=== PATIENT | female | born 1990 | race Hispanic/Latino ===

== ENCOUNTER 2020-08-11 09:19 | Emergency (ER) | payer OTHER, SELFPAY ==
--- NOTE | 2020-08-11 09:34 | ED.GENADULT ---
HPI - General Adult General Chief complaint: Upper Respiratory Infection Stated complaint: Sinus Infection/Ear Pain Time Seen by Provider: 08/11/20 09:38 Source: patient, family (spouse) and RN notes reviewed Mode of arrival: ambulatory Limitations: language barrier (patient speaks little Setswana and requested for spouse to translate for her, refused associate director regulatory affairs line) History of Present Illness HPI narrative: 29-year-old female presents with spouse (Suyapa requested he translate) complains of upper respiratory infection, some facial congestion, facial pressure, right otalgia, and intermittent headache (not the worst of her life) for the past 3 weeks. Suyapa and spouse reports 2 rounds of Z-pack (5 days each), 10 days of 875mg of Amoxicillin, Flonase, and Zyrtec with some relief. No facial swelling. Denies cough or chest congestion. Nasal congestion. No rhinorrhea. No sore throat. No high fevers, drooling, neck or throat swelling. No voice change. No nausea, vomiting, or abdominal pain. Tolerating liquids well. Denies dyspnea, difficulty swallowing, jaw pain, dental pain, foreign body sensation, facial swelling and rash. The patient and spouse reports they have not been diagnosed with COVID-19. The patient and spouse reports they are not waiting for the results of a COVID-19 lab test. The patient and spouse reports they do not have chills, weakness, fatigue, or myalgia. The patient and spouse reports they do not have a new or worsening cough or shortness of breath. Denies chest pain. The patient and spouse reports they do not have any loss of taste or diarrhea. Denies recent traveling. Denies concerns for COVID-19 or exposures been home with limited outdoor exposure except for essential household needs and return home. At this time, patient is not suspected of having COVID-19. Some parts of this dictation were generated by voice recognition software and may contain typographical and/or grammatical inaccuracies. Related Data Home Medications Medication Instructions Recorded Confirmed levothyroxine 08/11/20 Allergies Allergy/AdvReac Type Severity Reaction Status Date / Time No Known Allergies Allergy Verified 08/11/20 18:37 Review of Systems Review of Systems: Narrative: CONSTITUTIONAL: Denies fever, chills, sweats. EYES: Denies visual changes, redness, discharge. ENT: Denies rhinorrhea, sore throat. Complains of congestion, RT otalgia, facial congestion and pressure. CARDIOVASCULAR: Denies chest pain, palpitations, edema. RESPIRATORY: Denies dyspnea, wheezing, cough. GASTROINTESTINAL: Denies abdominal pain, nausea, vomiting, diarrhea. GENITOURINARY: Denies dysuria, hematuria, abnormal discharge. SKIN: Denies rash or itching. MUSCULOSKELETAL: Denies acute back pain, joint pain, or myalgia. NEUROLOGIC: Denies numbness or focal weakness. Complains of intermittent CHAVEZ. PSYCHIATRIC: Denies anxiety or depression. All systems reviewed & are unremarkable except as noted in HPI and below PMFSH Past Medical History Medical History delivery delivered Hypothyroidism Obesity Surgical History Surgical History (Updated 08/11/20 @ 10:57 by CARMEL Romo) H/O section X1 Family History Family History (Updated 08/11/20 @ 10:57 by CARMEL Romo) Father Hypercholesteremia Mother Hypercholesteremia Hypertension Diabetes mellitus Social History Social History Smoking status: Never smoker Tobacco type: cigarettes Second hand tobacco smoke exposure: No Alcohol intake: current Substance use: never Additional living arrangements comments: spouse and child Gender identity (if verbalized by the patient): Female Comments At time of signature, agree with nurse past medical, surgical, social, and family history. There is no relevant family history
[2020-08-11 09:41] VITALS: BP 121/65; PULSE 90; RESP 16; TEMP 36.1; O2SAT 100
[2020-08-11 09:45] VITALS: BP 121/65; PULSE 90; RESP 16; TEMP 36.1; O2SAT 100
== END 2020-08-11 11:15 | disposition home or self-care (01) ==
PROVIDERS: Emergency Provider Nurse Practitioner Family; PCP Physician Assistant
DX: J32.9 Chronic sinusitis, unspecified (principal); E03.9 Hypothyroidism, unspecified
CPT/HCPCS: 99213; G0463

== ENCOUNTER 2020-08-11 18:22 | Emergency (ER) | payer OTHER, SELFPAY ==
[2020-08-11] VITALS (32 sets, daily range): BP systolic 107–146; BP diastolic 64–88; PULSE 72–120; RESP 13–23; TEMP 37.2; O2SAT 94–100
--- NOTE | ~2020-08-11 | CT_ITS ---
EXAMINATION: CT abdomen pelvis w con DATE: 08/11/2020 21:23 INDICATION: Abdominal pain TECHNIQUE: Computed tomography (CT) of the abdomen and pelvis was performed with 100 cc Omnipaque 350 intravenous contrast. The dose-length product was 527.14 mGy-cm. Automated exposure control and iter ative reconstruction technique were employed. COMPARISON: None. FINDINGS: Lung bases are unremarkable. Heart size normal. No significant pleural or pericardial effus ion. No significant vascular abnormality. No lymphadenopathy. The liver, spleen, pancreas, adrenal glands and kidneys are unremarkable. Gallbladder is present. The re is mild bilateral hydronephrosis. No obstructing stone or mass is identified. There are fluid-fill ed small bowel loops in the left upper and midabdomen. No definite obstruction. Gallbladder is presen t. No free air or free fluid. No acute osseous abnormality. IMPRESSION: 1. Nonspecific fluid and gas filled segments of small bowel without definite obstruction, most likely ileus. Also consider enteritis. Reviewed, dictated and finalized at location A. EILLANCE SYSTEMS ANALYST IMPRESSION: 1. Nonspecific fluid and gas filled segments of small bowel without definite ob struction, most likely ileus. Also consider enteritis.
--- NOTE | ~2020-08-11 | XR_ITS ---
EXAMINATION: XR chest 1V portable EXAM DATE: 08/11/2020 22:51 INDICATION: Cough, right-sided upper abdominal flank pain, numbness down right leg. TECHNIQUE: Portable AP frontal chest x-ray was obtained. There is no prior study for comparison. FINDINGS: The lungs are clear. There are no pleural effusions. Cardiac silhouette is prominent but magnified on this AP technique. There is no pneumothorax suspected. The bones and soft tissues are unremarkable. IMPRESSION: No acute cardiopulmonary findings. Reviewed, dictated and finalized at location A. S PERSON
--- NOTE | 2020-08-11 18:43 | PC.NURSE ---
patient seen this morning at [facility] for flank pain, ear pain and sinus pressure. states she believes she is not getting any better
--- NOTE | 2020-08-11 19:22 | PC.NURSE ---
Used stratus to explain blood draw, need for and process for clean catch UA, which pain meds will be getting and will be getting IVF after inserting an IV. Pt. denied questions.
[2020-08-11] MEDS: SODIUM CHLORIDE 0.9% IV 1,000 ML 999 ML IV CONT (19:40)
[2020-08-11] MEDS: KETOROLAC 30 MG/ML VIAL (*BKC) IV PUSH (19:41)
[2020-08-11 19:55] LABS: Basophils Percent Auto 0.2 % (0.2-1.2); Eosinophils Percent Auto 0.1 % (0-4.4); Hematocrit 40.8 % (37.0-47.0); Hemoglobin 14.3 g/dL (12.0-15.0); Immature Granulocyte Absolute 0.04 K/mm3 (0.00-0.031); Immature Granulocyte Percent A 0.4 % (0-0.5); Lymphocytes Absolute Auto 1.66 K/mm3 (0.9-3.2); Mean Corpuscular Hemoglobin 31.7 pg (26-34); Mean Corpuscular Volume 90.5 fl (80-100); Mean Platelet Volume 9.8 fl (7.4-10.4); Monocytes Absolute Auto 0.4 K/mm3 (0.1-0.6); Monocytes Percent Auto 3.9 % (2.6-8.5); Neutrophils Absolute Auto 7.6 K/mm3 (1.3-6.7); Neutrophils Percent Auto 78.4 % (45.5-73.1); Platelet Count Result 298 k/mm3 (150-375); Red Blood Count 4.51 M/mm3 (4.2-5.4); White Blood Count 9.8 K/mm3 (4.5-10.0)
[2020-08-11 19:59] LABS: Add Urine Microscopic? YES; Appearance Urine Clear (Clear); Bacteria Urine Trace /hpf; Bilirubin Urine Negative (Negative); Blood Urine Negative (Negative); Color Urine Colorless (Yellow); Glucose Urine UA 1+ mg/dL (Negative); Ketones Urine Negative (Negative); Leukocyte Esterase Ur Negative LEU/UL (Negative); Mucus Urine Rare /lpf; Nitrate Urine Negative (Negative); Protein Urine Negative (Negative); RBC Urine 0-2 /hpf (0-2); Specific Grav Ur 1.008 (1.001-1.035); Squamous Epithelial Cell Urine Occasional /hpf (Few); Urobilinogen Urine Negative mg/dL (<2.0); WBC Urine 0-3 /hpf
[2020-08-11 20:14] LABS: Lipase 73 U/L (23-300)
[2020-08-11 20:17] LABS: Alanine Aminotransferase 25 U/L (4-35); Albumin Level 4.3 g/dL (3.5-5.1); Alkaline Phosphatase 93 U/L (38-126); Anion Gap 11 mmol/L (8-16); Aspartate Amino Transferase 26 U/L (14-36); Bilirubin,Total 0.2 mg/dL (0.2-1.3); Blood Urea Nitrogen 12 mg/dL (7-17); Calcium 9.9 mg/dL (8.4-10.2); Carbon Dioxide 24 mmol/L (22-30); Chloride 105 mmol/L (98-107); Estimated CRCL calculation 101 ml/min; Estimated Glomerular Filt Rate > 60; Glucose 165 mg/dL (65-105); Potassium 3.9 mmol/L (3.4-5.0); Sodium 140 mmol/L (137-145)
[2020-08-11] MEDS: ONDANSETRON INJ 4 MG/2 ML VIAL IV PUSH (20:52)
[2020-08-11] MEDS: MORPHINE SULFATE (*CRX) 4 MG/ML INJ IV PUSH (20:53)
--- NOTE | 2020-08-11 23:24 | ED.GENADULT ---
HPI - General Adult General Chief complaint: Abdominal Pain Stated complaint: right flank pain, numbness, high bp Time Seen by Provider: 08/11/20 19:00 Source: RN notes reviewed History of Present Illness HPI narrative: Patient presents to emergency department from home for multiple complaints. Patient states that over the past 1 month she has been having pain in her right flank rating around her right abdomen and down into her right buttocks with tingling intermittently in her right leg states the pain became worse this evening she denies any trauma or injury she also states that she has been having some sinus congestion and rhinorrhea with a mild nonproductive cough over the past several days the patient gone to urgent care this morning and been placed on steroids and antihistamines. She denies any fevers or chills she states she has been having nausea and vomiting as well as some mild loose stools she denies any fevers or chills chest pain shortness of breath or any other symptoms. She denies any bowel or bladder incontinence or weakness of the leg Related Data Home Medications Medication Instructions Recorded Confirmed levothyroxine 08/11/20 Allergies Allergy/AdvReac Type Severity Reaction Status Date / Time No Known Allergies Allergy Verified 08/11/20 18:37 Review of Systems Review of Systems: Narrative: Gen.: Denies fevers or chills Eyes: Denies eye pain or visual change ENT: Reports congestion Respiratory: Denies shortness of breath reports nonproductive cough CV: Denies chest pain or palpitations GI: Reports right-sided abdominal pain reports nausea vomiting diarrhea denies burning, urgency, frequency or hematuria Musculoskeletal: Reports right flank pain Neuro: Denies numbness, reports tingling intermittently right leg denies any weakness Skin: Denies rash Except as documented, all other systems reviewed and negative [facility] Past Medical History Medical History delivery delivered Hypothyroidism Obesity Surgical History Surgical History (Updated 08/11/20 @ 10:57 by CARMEL Romo) H/O section X1 Family History Family History (Updated 08/11/20 @ 10:57 by CARMEL Romo) Father Hypercholesteremia Mother Hypercholesteremia Hypertension Diabetes mellitus Social History Social History Smoking status: Never smoker Tobacco type: cigarettes Second hand tobacco smoke exposure: No Alcohol intake: current Substance use: never Additional living arrangements comments: spouse and child Gender identity (if verbalized by the patient): Female Exam Narrative: Exam Narrative: APPEARANCE: No acute distress, nontoxic, resting in bed EYES: EOMI HEENT: Normocephalic, atraumatic, TMs clear bilaterally bilateral turbinates boggy RESPIRATORY: No respiratory distress Clear to auscultation bilaterally with no rhonchi wheezing or rales. CARDIOVASCULAR: Regular rate and rhythm without murmurs rubs or gallops. ABDOMINAL: Soft, nondistended mild tenderness in right upper and lower quadrants no tenderness left upper quadrant and left lower quadrant no rebound or guarding no overlying erythema or rash MUSCULOSKELETAl: Moves all extremities. No clubbing, cyanosis or edema. Back: No midline thoracic or lumbar chest palpation palpation right paravertebral muscles L3-5 muscle strength 5 out of 5 in bilateral lower extremities bilateral patellar 2+ NEURO: Awake and alert x 4. Following commands, speech normal, no focal deficits SKIN:: Warm, dry. No rashes lesions or abrasions PSYCHIATRIC: Normal affect/mood, Course Course Emergency Course: Reviewed note from urgent care this morning Discussed with patient results of workup and diagnosis. Discussed need for follow-up with primary care, proper use of medication, and reasons to return to the emergency department.
[2020-08-12 19:30] LABS: SARS-CoV-2 RNA PCR Negative
== END 2020-08-11 23:54 | disposition home or self-care (01) ==
PROVIDERS: Emergency Provider Emergency Medicine; PCP Physician Assistant
DX: K52.9 Noninfective gastroenteritis and colitis, unspecified (principal); M54.5 Low back pain; Z20.828 Contact with and (suspected) exposure to other viral communicable diseases; E03.9 Hypothyroidism, unspecified; E66.9 Obesity, unspecified; Z68.30 Body mass index [BMI] 30.0-30.9, adult
CPT/HCPCS: 36415; 71045; 74177; 80053; 81001; 81025; 83690; 85025; 87635; 96361; 96374; 96375; 99284; C9803; J1885; J2270; J2405; J7030; Q9967; U0003

== ENCOUNTER 2020-08-23 13:45 | Outpatient (CLI) | payer OTHER, SELFPAY ==
--- NOTE | ~2020-08-23 | US_ITS ---
EXAMINATION: US thyroid DATE: 08/23/2020 14:03 INDICATION: Hypothyroidism. TECHNIQUE: Multiple ultrasound images of the thyroid were obtained. COMPARISON: None. FINDINGS: The right thyroid lobe measures 3.1 x 1.0 x 1.0 cm. The left thyroid lobe measures 2.8 x 0.9 x 0.9 c m. There is normal echotexture and echogenicity throughout the thyroid gland. No discrete nodules id entified. Normal vascular flow is present. IMPRESSION: 1. Normal thyroid. Reviewed, dictated and finalized at location A. IOLOGY PHYSICIAN ASSISTANT IMPRESSION: 1. Normal thyroid.
== END 2020-08-23 13:46 ==
PROVIDERS: PCP Physician Assistant; Visit Provider Physician Assistant
DX: E03.9 Hypothyroidism, unspecified (principal)
CPT/HCPCS: 76536

== ENCOUNTER 2020-09-09 00:31 | Emergency (ER) | payer OTHER, SELFPAY ==
[2020-09-09 00:45] VITALS: BP 130/81; PULSE 88; RESP 12; TEMP 37; O2SAT 100
[2020-09-09] MEDS: KETOROLAC 30 MG/ML VIAL (*BKC) IV PUSH (01:48)
[2020-09-09] MEDS: SODIUM CHLORIDE 0.9% IV 1,000 ML 999 ML IV CONT (01:49)
[2020-09-09 01:55] LABS: Anion Gap 4 mmol/L (8-16); Blood Urea Nitrogen 14 mg/dL (7-17); Calcium 9.2 mg/dL (8.4-10.2); Carbon Dioxide 28 mmol/L (22-30); Chloride 107 mmol/L (98-107); Estimated Glomerular Filt Rate > 60; Glucose 101 mg/dL (65-105); Magnesium 2.1 mg/dL (1.6-2.3); Potassium 3.8 mmol/L (3.4-5.0); Sodium 139 mmol/L (137-145)
--- NOTE | 2020-09-09 02:44 | ED.GENADULT ---
HPI - General Adult General Chief complaint: Allergic Reaction Stated complaint: think i might be having a rxn to an antibiotic. Time Seen by Provider: 09/09/20 00:55 History of Present Illness HPI narrative: Patient is a 29-year-old female who presents to the ER with concerns of headache and sinus issues. Patient reports chronic sinus infection that she is recently seen ENT for. She started Augmentin. Previously she had been on a Z-Kiet x2 as well as amoxicillin. Additionally she had finished 2 rounds of steroids. She reports that she takes Flonase daily as well as other oral sinus decongestants. Tonight she is having a throbbing/burning headache over the top of her head near the occiput. No change in vision or hearing. No nausea or vomiting. She reports she thought she might be having some swelling to her left neck near the mandibular angle. No redness. No inability to swallow. Related Data Home Medications Medication Instructions Recorded Confirmed levothyroxine 08/11/20 Allergies Allergy/AdvReac Type Severity Reaction Status Date / Time Iodine and Iodide Containing Allergy Unknown Verified 09/09/20 01:47 Produc Review of Systems Review of Systems: All systems reviewed & are unremarkable except as noted in HPI and below Constitutional: Constitutional: Denies chills, Denies fever(s) and Denies weakness ENT: Denies dysphagia, Reports nasal congestion and Denies sore throat Respiratory: Respiratory: Denies cough and Denies dyspnea Gastrointestinal: Gastrointestinal: Denies abdominal pain, Denies nausea and Denies vomiting Neurologic: Denies dizziness, Reports headache(s) and Denies numbness PMFSH Past Medical History Medical History delivery delivered Hypothyroidism Obesity Surgical History Surgical History (Updated 08/11/20 @ 10:57 by CARMEL Romo) H/O section X1 Family History Family History (Updated 08/11/20 @ 10:57 by CARMEL Romo) Father Hypercholesteremia Mother Hypercholesteremia Hypertension Diabetes mellitus Social History Social History Smoking status: Never smoker Tobacco type: cigarettes Second hand tobacco smoke exposure: No Alcohol intake: current Substance use: never Additional living arrangements comments: spouse and child Gender identity (if verbalized by the patient): Female Exam Narrative: Exam Narrative: GENERAL: Well-appearing, well-nourished, and in no acute distress. HEAD: Normocephalic, atraumatic. NECK: Supple. CHEST: Clear to auscultation. No respiratory distress. HEART: Regular rate and rhythm. Normal peripheral pulses. EXTREMITIES: Normal range of motion. No edema. NEURO: Alert and oriented x3. PSYCH: Normal mood and affect. Course Course Emergency Course: Unremarkable evaluation. Headache improved after fluids and Toradol. Discharge home. Vital Signs Vital signs: Vital Signs Temperature 98.6 F 09/09/20 00:45 Pulse Rate 88 09/09/20 00:45 Respiratory Rate 12 09/09/20 00:45 Blood Pressure 130/81 09/09/20 00:45 Pulse Oximetry 100 09/09/20 00:45 Temperature 98.6 F 09/09/20 00:45 Pulse Rate 88 09/09/20 00:45 Respiratory Rate 12 09/09/20 00:45 Blood Pressure 130/81 09/09/20 00:45 Pulse Oximetry 100 09/09/20 00:45 Medical Decision Making Vital Signs Vital Signs: Vital Signs Temperature 98.6 F 09/09/20 00:45 Pulse Rate 88 09/09/20 00:45 Respiratory Rate 12 09/09/20 00:45 Blood Pressure 130/81 09/09/20 00:45 Pulse Oximetry 100 09/09/20 00:45 Temperature 98.6 F 09/09/20 00:45 Pulse Rate 88 09/09/20 00:45 Respiratory Rate 12 09/09/20 00:45 Blood Pressure 130/81 09/09/20 00:45 Pulse Oximetry 100 09/09/20 00:45 Lab Data Result diagrams: 09/09/20 01:36 Labs: Lab Results
[2020-09-09 03:10] VITALS: BP 113/79; PULSE 75; RESP 16; O2SAT 99
== END 2020-09-09 03:10 | disposition home or self-care (01) ==
PROVIDERS: Emergency Provider Emergency Medicine; PCP Physician Assistant
DX: R51.9 Headache, unspecified (principal); E03.9 Hypothyroidism, unspecified; E66.9 Obesity, unspecified
CPT/HCPCS: 36415; 80048; 83735; 96361; 96374; 99284; J1885; J7030

== ENCOUNTER → 2020-09-26 06:51 | Outpatient (CLI) | payer OTHER, SELFPAY ==
[2020-09-26 22:50] LABS: SARS-CoV-2 RNA PCR Negative
== END ==
PROVIDERS: PCP Physician Assistant; Visit Provider Physician Assistant
DX: Z20.822 Contact with and (suspected) exposure to COVID-19 (principal); R51.9 Headache, unspecified
CPT/HCPCS: C9803; U0003; U0005

== ENCOUNTER 2020-10-16 11:05 | Outpatient (CLI) | payer OTHER, SELFPAY ==
--- NOTE | ~2020-10-16 | MR_ITS ---
EXAMINATION: MR brain/brain stem wo/w con DATE: 10/16/2020 11:46 INDICATION: New daily persistent headache. TECHNIQUE: Magnetic resonance imaging (MRI) of the brain and brainstem was performed without and with 13 mL MultiHance intravenous contrast. Sequences included sagittal and axial T1-weighted FSE, axial diffusion-weighted FS EPI, axial T2*-weighted GRE, axial T2-weighted FLAIR Propeller, and axial T2-we ighted Propeller. Postcontrast sequences included axial and coronal T1-weighted FSE. Apparent diffusi on coefficient (ADC) maps were created. COMPARISON: Head CT 06/08/2018 FINDINGS: There is no intracranial hemorrhage, acute infarction, or abnormal intracranial mass lesion . The ventricles are normal in size. There is mild mucosal thickening in the paranasal sinuses. The o rbits are normal. The mastoid air cells are normal. IMPRESSION: 1. Normal brain. Reviewed, dictated and finalized at location A. UCTION SUPPORT SUPERVISOR IMPRESSION: 1. Normal brain.
[2020-10-16 11:29] LABS: Estimated Glomerular Filt Rate > 60
== END 2020-10-16 11:06 ==
PROVIDERS: PCP Physician Assistant; Visit Provider Physician Assistant
DX: G44.52 New daily persistent headache (NDPH) (principal)
CPT/HCPCS: 70553; A9577

== ENCOUNTER 2020-10-27 15:17 | Outpatient (CLI) | payer OTHER, SELFPAY ==
--- NOTE | ~2020-10-27 | CT_ITS ---
EXAMINATION: CT sinus wo con DATE: 10/27/2020 15:35 INDICATION: Chronic sinusitis TECHNIQUE: Computed tomography (CT) of the paranasal sinuses was performed without intravenous contra st. The dose-length product was 290.55 mGy-cm. Automated exposure control and iterative reconstructio n technique were employed. COMPARISON: CT dated 06/08/2018 FINDINGS: The paranasal sinuses are unremarkable without significant abnormal fluid or mucoperiosteal reaction. There is very mild mucosal thickening of the maxillary and ethmoid sinuses. Rightward nasa l septal deviation. Ostiomeatal units are patent. Mastoids are pneumatized. IMPRESSION: 1. Mild maxillary and ethmoid sinus disease. Reviewed, dictated and finalized at location A. OSIVES DETONATOR
== END 2020-10-27 15:18 | disposition home or self-care (01) ==
PROVIDERS: PCP Physician Assistant; Visit Provider Otolaryngology
DX: J32.0 Chronic maxillary sinusitis (principal); J32.2 Chronic ethmoidal sinusitis
CPT/HCPCS: 70486

== ENCOUNTER 2021-01-29 18:06 | Emergency (ER) | payer OTHER, SELFPAY ==
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
[2021-01-29 18:31] VITALS: BP 131/85; PULSE 92; RESP 14; TEMP 36.4; O2SAT 100
[2021-01-29 19:14] VITALS: BP 131/85; PULSE 92; RESP 16; O2SAT 100
[2021-01-29] MEDS: KETOROLAC 30 MG/ML VIAL (*BKC) IM (21:03)
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
[2021-01-29 23:35] VITALS: BP 133/88; PULSE 80; RESP 16; O2SAT 99
== END 2021-01-29 23:36 | disposition home or self-care (01) ==
PROVIDERS: Emergency Provider Emergency Medicine; PCP Physician Assistant
DX: S29.012A Strain of muscle and tendon of back wall of thorax, initial encounter (principal); E03.9 Hypothyroidism, unspecified; E66.9 Obesity, unspecified; Z68.31 Body mass index [BMI] 31.0-31.9, adult; V49.40XA Driver injured in collision with unspecified motor vehicles in traffic accident, initial encounter
CPT/HCPCS: 72125; 72128; 72131; 81025; 96372; 99284; J1885; L0140

== ENCOUNTER 2021-03-20 16:55 | Emergency (ER) | payer OTHER, SELFPAY ==
--- NOTE | ~2021-03-20 | XR_ITS ---
EXAMINATION: XR ankle LT min 3V DATE: 03/20/2021 17:20 INDICATION: Left ankle injury and pain and swelling. TECHNIQUE: 4 views of left ankle were obtained. COMPARISON: None. FINDINGS: Bone alignment is normal. No fracture. Joint spaces are well maintained. There is lateral a nkle soft tissue swelling. IMPRESSION: 1. No fracture. Reviewed, dictated and finalized at location A. IMPRESSION: 1. No fracture.
[2021-03-20 17:09] VITALS: BP 122/68; PULSE 85; RESP 16; TEMP 36.7; O2SAT 100
--- NOTE | 2021-03-20 17:14 | ED.GENADULT ---
HPI - General Adult General Chief complaint: Extremity Injury, Lower Stated complaint: lt ankle injury Time Seen by Provider: 03/20/21 17:14 Source: patient, family (spouse (patient gave permission for spouse to remain in room)) and RN notes reviewed Mode of arrival: ambulatory Limitations: no limitations History of Present Illness HPI narrative: 30-year-old female presents with complaints of pain and swelling to the left ankle for 1 day. ?Suyapa reports being in shower and passed out for an unknown length of time and unwitnessed approximately 12:00PM today causing her to twist LT ankle causing injury. ?No treatment. No radiating pain. ?No numbness or tingling or loss of mobility. ?Denies inability to bear weight. ?Exacerbation factor consists of movement and bearing weight. Relieving factor is immobility. ?Denies discoloration. ?Denies altered sensation, back pain, neck pain, and suspected foreign body. Denies fever or chills. LMP unknown due to Nexplanon in place. ?Remains active. ?The patient reports she has not been diagnosed with COVID-19. ?The patient reports she received the Posiba and Posiba COVID-19 vaccine. ?The patient reports she is not waiting for the results of a COVID-19 lab test. ?The patient reports she does not have weakness, fatigue, or myalgia. ?The patient reports he does not have a new or worsening cough or shortness of breath. ?The patient reports he does not have any rhinorrhea, congestion, loss of taste, sore throat, and diarrhea. ?Denies recent traveling. ?Denies concerns for COVID-19 or exposures. ?At this time, the patient is not suspected of having COVID-19. Complaints of vertigo symptoms caused her to pass out today approximately 5 hours ago. ?Suyapa reports being in shower and passed out an unknown amount of time and unwitnessed approximately 12:00PM today. ?She is currently being treated for dizziness that has been going on for several months. Meclizine, last on 03/19/2021 and physical therapy with some relief. ? Symptoms increased today without treatment. Exacerbating factors consist of changing position too fast, turning head from side to side too fast, certain movements. ?Some relieving factors are sitting still and medication. ?Denies ear pain, ear trauma, trauma to head, altered vision, altered speech, confusion, or seizure activity. Denies headache, numbness, or tingling in extremities. Denies chest pain or dyspnea. ?Denies URI symptoms. ?Denies nausea, vomiting, and abdominal pain. Tolerating p.o. intake well. ?Remains active. Some parts of this dictation were generated by voice recognition software and may contain typographical and/or grammatical inaccuracies. Related Data Home Medications Medication Instructions Recorded Confirmed meclizine mg 03/20/21 Allergies Allergy/AdvReac Type Severity Reaction Status Date / Time Iodine and Iodide Containing Allergy Unknown Verified 10/17/20 15:10 Produc Review of Systems Review of Systems: CONSTITUTIONAL: Denies fever, chills, sweats. EYES: Denies visual changes, redness, discharge. ENT: Denies rhinorrhea, congestion, sore throat, otalgia. CARDIOVASCULAR: Denies chest pain, palpitations, edema. RESPIRATORY: Denies dyspnea, wheezing, cough. SKIN: Denies rash or itching. MUSCULOSKELETAL: Denies acute back pain or myalgia. Complains of LT ankle swelling and pain. NEUROLOGIC: Denies numbness or focal weakness. Complaints of vertigo and syncopal episode. PSYCHIATRIC: Denies anxiety or depression. All other systems reviewed & are unremarkable except as noted in HPI and below. [facility] Past Medical History Medical History delivery delivered Hypothyroidism Obesity Surgical History Surgical History H/O section X1 Family History Family History Father Hyperchol
[2021-03-20 17:21] VITALS: BP 103/62; PULSE 71
[2021-03-20 17:22] VITALS: BP 99/65; PULSE 93
[2021-03-20 17:23] VITALS: BP 133/70; PULSE 82
--- NOTE | 2021-03-20 17:33 | ECG_ITS ---
Measurements Intervals Percy Rate: 76 P: 50 SD: 152 QRS: 33 QRSD: 98 T: 33 QT: 369 QTc: 416 Interpretive Statements SINUS RHYTHM WITH SINUS ARRHYTHMIA INCOMPLETE RIGHT BUNDLE BRANCH BLOCK BORDERLINE ECG Electronically Signed On 03-21-2021 7:44:07 CDT by Arjun Ward D.O.
== END 2021-03-20 17:55 | disposition home or self-care (01) ==
PROVIDERS: Emergency Provider Nurse Practitioner Family; PCP Physician Assistant
DX: S93.402A Sprain of unspecified ligament of left ankle, initial encounter (principal); W19.XXXA Unspecified fall, initial encounter; R42 Dizziness and giddiness; E03.9 Hypothyroidism, unspecified; E66.9 Obesity, unspecified; Z68.30 Body mass index [BMI] 30.0-30.9, adult
CPT/HCPCS: 73610; 93005; 99213; G0463

== ENCOUNTER 2022-06-04 07:59 | Outpatient (CLI) | payer OTHER, SELFPAY ==
--- NOTE | ~2022-06-04 | US_ITS ---
EXAMINATION: US abdomen complete DATE: 06/04/2022 08:24 INDICATION: Generalized abdominal TECHNIQUE: Multiple grayscale and Doppler ultrasound images of the abdomen were obtained. COMPARISON: 07/01/2014 FINDINGS: The head and body of the pancreas are normal. The pancreatic tail is obscured by bowel gas. The liver is normal with normal echogenicity and echotexture. No surface nodularity. Normal hepatope daniel flow in the main portal vein. The gallbladder is normal with no abnormal wall thickening, pericho lecystic fluid or stones. The normal common bile duct measures 4 mm. There was no sonographic Pinzon sign. The visualized portions of the aorta and inferior vena cava are normal. The right kidney measures 10.5 x 4.6 x 4.9 cm. The left kidney measures 10.5 x 5.3 x 4 cm. The kidney s demonstrate normal parenchymal echogenicity. There is no hydronephrosis. The spleen is normal in ap pearance and measures 8.6 cm. IMPRESSION: 1. No sonographic correlate for the patient's symptoms. Reviewed, dictated and finalized at location A.
== END 2022-06-04 08:00 ==
PROVIDERS: PCP Physician Assistant; Visit Provider Physician Assistant
DX: R10.9 Unspecified abdominal pain (principal)
CPT/HCPCS: 76700

== ENCOUNTER 2022-08-03 12:15 | Emergency (ER) | payer OTHER, SELFPAY ==
--- NOTE | ~2022-08-03 | CT_ITS ---
EXAMINATION: CT abdomen pelvis wo con DATE: 08/03/2022 15:02 INDICATION: Left flank pain and hematuria TECHNIQUE: Computed tomography (CT) of the abdomen and pelvis was performed without intravenous contr ast. Automated exposure control and iterative reconstruction technique were employed. The dose-length product was 187.40 mGy-cm. COMPARISON: 08/11/2020 FINDINGS: Lung bases are clear. Heart size is normal. No pericardial or pleural effusion. Liver, gallbladder, s pleen, pancreas and bilateral adrenal glands are normal. Kidneys and ureters are normal with no uroli thiasis, hydroureteronephrosis or perinephric/ureteral stranding. Bladder is normal. Uterus and bilat eral adnexa are unremarkable. Small amount of likely physiologic free fluid in the cul-de-sac. There are few sigmoid diverticula without adjacent inflammatory change to suggest diverticulitis. Small bow el and appendix are normal. No pathologically enlarged abdominal or pelvic lymphadenopathy. Bones are unremarkable. IMPRESSION: 1. Small amount of likely physiologic free fluid in the cul-de-sac. No urolithiasis or other acute in tra-abdominal/pelvic process. Reviewed, dictated and finalized at location A. TH SAFETY AND ENVIRONMENT MANAGER IMPRESSION: 1. Small amount of likely physiologic free fluid in the cul-de-sac. No urolithi asis or other acute intra-abdominal/pelvic process.
[2022-08-03 12:16] VITALS: BP 101/60; PULSE 64; RESP 14; TEMP 36.4; O2SAT 100
[2022-08-03 14:21] LABS: Basophils Absolute Auto 0.1 K/mm3 (0.0-0.1); Basophils Percent Auto 0.5 % (0.2-1.2); Eosinophils Absolute Auto 0.2 K/mm3 (0-0.3); Eosinophils Percent Auto 2.1 % (0-4.4); Hematocrit 39.8 % (37.0-47.0); Hemoglobin 13.5 g/dL (12.0-15.0); Immature Granulocyte Absolute 0.02 K/mm3 (0.00-0.031); Immature Granulocyte Percent A 0.2 % (0-0.5); Lymphocytes Absolute Auto 3.19 K/mm3 (0.9-3.2); Lymphocytes Percent Auto 33.1 % (18.3-44.2); Mean Corpuscular HGB Conc 33.9 g/dl (32-36); Mean Corpuscular Hemoglobin 30.5 pg (26-34); Mean Corpuscular Volume 89.8 fl (80-100); Mean Platelet Volume 9.6 fl (7.4-10.4); Monocytes Percent Auto 10.6 % (2.6-8.5); Neutrophils Absolute Auto 5.2 K/mm3 (1.3-6.7); Neutrophils Percent Auto 53.5 % (45.5-73.1); Platelet Count Result 307 k/mm3 (150-375); Red Blood Count 4.43 M/mm3 (4.2-5.4); Red Cell Distribution Width 12.7 % (11.5-14.5); White Blood Count 9.6 K/mm3 (4.5-10.0)
--- NOTE | 2022-08-03 14:26 | ED.ABDPAIN ---
HPI - Abdominal Pain General Chief Complaint: Abdominal Pain Stated Complaint: lower abd pain Time Seen by Provider: 08/03/22 14:00 History of Present Illness HPI narrative: Patient is a 31-year-old female with a history of kidney stones here for evaluation of left flank pain over the past 2 days. Patient states the pain is intermittent but severe in nature, originating in her left flank and will occasionally wrap around into her left groin. She notes a similar pain with her history of kidney stones and actually notes that she has passed several small stones in her urine. Denies relief after ibuprofen. Also notes several episodes of vomiting nonbloody/nonbilious emesis and constipation over the past several days. No fevers or chills. Related Data Home Medications Medication Instructions Recorded Confirmed levothyroxine 125 mcg tablet 125 mcg PO DAILY 01/16/22 (Synthroid) Allergies Allergy/AdvReac Type Severity Reaction Status Date / Time Iodine and Iodide Containing Allergy Unknown Verified 08/03/22 14:02 Produc Review of Systems Review of Systems: Gen: Denies fevers or chills Eyes: Denies eye pain or visual change ENT: Denies congestion Respiratory: Denies shortness of breath or cough CV: Denies chest pain or palpitations GI: Reports flank pain, nausea and vomiting. : denies burning, urgency, frequency or hematuria Musculoskeletal: Denies back pain or muscle pain Neuro: Denies numbness, tingling, weakness or focal weakness Skin: Denies rash Except as documented, all other systems reviewed and negative [facility] Past Medical History Medical History delivery delivered Hypothyroidism Insertion of Nexplanon 2019 Obesity Thyroid disease Surgical History Surgical History H/O section X1 History of tonsillectomy and adenoidectomy Family History Family History Father Hypercholesteremia Mother Hypercholesteremia Hypertension Diabetes mellitus Social History Social History Smoking status: Never smoker Tobacco type: cigarettes Second hand tobacco smoke exposure: No Alcohol intake: former Substance use: never Additional living arrangements comments: spouse and child Additional occupation/education comments: [employer] Gender identity (if verbalized by the patient): Female Sexual Orientation (if Verbalized by the Patient): Straight or Heterosexual Exam Narrative: APPEARANCE: Well appearing, no pain in distress, well-nourished. Head: Normocephalic and atraumatic. EYES: PERRLA/EOMI, conjunctivae clear NOSE: No nasal drainage EARS: External ear normal in appearance THROAT: Oropharynx is clear. Mucous membranes are moist. NECK: Supple. No adenopathy, no masses. RESPIRATORY: Airway patent, respirations nonlabored. Clear to auscultation bilaterally, no rales, rhonchi, wheezing. CARDIOVASCULAR: Regular rate and rhythm without murmurs, rubs, or gallops. ABDOMINAL: Normoactive bowel sounds. Soft, nontender, nondistended. No rebound tenderness or guarding. MUSCULOSKELETAL: Extremities are warm and well-perfused. Moves all extremities well. No edema. NEURO: Normal speech. No focal neurologic deficits. SKIN: Skin is warm and dry. No rashes. PSYCHIATRIC: Normal affect/mood. Course Vital Signs Vital signs: Vital Signs Temperature 97.5 F L 08/03/22 12:16 Pulse Rate 64 08/03/22 12:16 Respiratory Rate 14 08/03/22 12:16 Blood Pressure 101/60 08/03/22 12:16 Pulse Oximetry 100 08/03/22 12:16 Oxygen Delivery Room Air 08/03/22 12:16 Temperature 97.5 F L 08/03/22 12:16 Pulse Rate 80 08/03/22 16:51 Respiratory Rate 16 08/03/22 16:51 Blood Pressure 132/70 08/03/22 16:51 Pulse Oximetry 99 08/03
[2022-08-03 14:33] LABS: Alanine Aminotransferase 25 U/L (6-35); Albumin Level 4.3 g/dL (3.5-5.1); Alkaline Phosphatase 72 U/L (38-126); Anion Gap 4 mmol/L (8-16); Aspartate Amino Transferase 30 U/L (14-36); Bilirubin,Total 0.4 mg/dL (0.2-1.3); Blood Urea Nitrogen 17 mg/dL (7-17); Calcium 9.1 mg/dL (8.4-10.2); Carbon Dioxide 28 mmol/L (22-30); Chloride 103 mmol/L (98-107); Estimated CRCL calculation 83 ml/min; Estimated Glomerular Filt Rate > 60; Glucose 85 mg/dL (65-110); Potassium 4.2 mmol/L (3.4-5.0); Sodium 135 mmol/L (137-145)
[2022-08-03 14:59] LABS: Add Urine Microscopic? NO; Appearance Urine Clear (Clear); Bilirubin Urine Negative (Negative); Blood Urine Negative (Negative); Color Urine Light Yellow (Yellow); Glucose Urine UA Negative (Negative); Ketones Urine Negative (Negative); Leukocyte Esterase Ur Negative LEU/UL (Negative); Nitrate Urine Negative (Negative); Protein Urine Negative (Negative); Specific Grav Ur 1.025 (1.001-1.035); Urobilinogen Urine 0.2 mg/dL (<2.0); pH Urine 5.5 (5.0-9.0)
[2022-08-03] MEDS: MORPHINE SULFATE (*CRX) 4 MG/ML INJ IV PUSH (15:48)
[2022-08-03] MEDS: ONDANSETRON INJ 4 MG/2 ML VIAL IV PUSH (15:48)
[2022-08-03 16:51] VITALS: BP 132/70; PULSE 80; RESP 16; O2SAT 99
== END 2022-08-03 16:52 | disposition home or self-care (01) ==
PROVIDERS: Emergency Provider Physician Assistant; PCP Physician Assistant
DX: R10.9 Unspecified abdominal pain (principal); E03.9 Hypothyroidism, unspecified; E66.9 Obesity, unspecified; Z68.27 Body mass index [BMI] 27.0-27.9, adult; Z87.442 Personal history of urinary calculi
CPT/HCPCS: 36415; 74176; 80053; 81003; 81025; 85025; 96374; 96375; 99284; J2270; J2405

== ENCOUNTER 2022-11-12 11:34 | Outpatient (CLI) | payer OTHER, SELFPAY ==
--- NOTE | ~2022-11-12 | US_ITS ---
Thyroid ultrasound. Clinical History: Goiter Findings: Real-time sonography of the thyroid gland was performed. The right lobe measures 2.7 x 0.9 x 0.9 cm. The left lobe measures 2.4 x 0.8 x 0.7 cm. The isthmus is 2 mm in AP diameter. Thyroid par enchyma is homogeneous. Note nodule identified. Impression: Small thyroid gland without evidence of nodule. Correlate with thyroid function tests as indicated. Reviewed, dictated and finalized at location . Impression: Small thyroid gland without evidence of nodule. Correlate with thyroid function tests as indicated.
== END 2022-11-12 11:35 | disposition home or self-care (01) ==
PROVIDERS: PCP Physician Assistant; Visit Provider Internal Medicine Endocrinology, Diabetes & Metabolism
DX: E04.9 Nontoxic goiter, unspecified (principal)
CPT/HCPCS: 76536

== ENCOUNTER 2023-03-18 07:51 | Emergency (ER) | payer SELFPAY ==
--- NOTE | ~2023-03-18 | CT_ITS ---
EXAMINATION: CT abdomen pelvis wo con DATE: 03/18/2023 08:31 INDICATION: Left flank pain. TECHNIQUE: Computed tomography (CT) of the abdomen and pelvis was performed without intravenous contr ast. Automated exposure control and iterative reconstruction technique were employed. The dose-length product was 573.64 mGy-cm. COMPARISON: CT abdomen and pelvis 08/03/2022 FINDINGS: The visualized portions of the lung bases demonstrated mild atelectasis. No pleural effusio n. The heart size is normal. No pericardial effusion. The liver, gallbladder, spleen, pancreas, adren al glands, and kidneys are normal. There is no urolithiasis. There are no dilated loops of bowel. The appendix is normal. There is physiologic fluid in the pelvis. There are no pathologically enlarged l ymph nodes. There is mild lumbar spondylosis. IMPRESSION: 1. No urolithiasis. Reviewed, dictated and finalized at location A. IMPRESSION: 1. No urolithiasis.
[2023-03-18 07:55] VITALS: BP 105/75; PULSE 61; RESP 16; TEMP 37.1; O2SAT 100
--- NOTE | 2023-03-18 08:04 | ED.ABDPAIN ---
HPI - Abdominal Pain General Chief Complaint: Abdominal Pain Stated Complaint: flank pain-being treated for UTI and BV Time Seen by Provider: 03/18/23 07:54 History of Present Illness HPI narrative: Pt presents with left flank pain radiating to lower abdomen for a few days. Pt speaks minimal French so her is translating. Pt apparently seen at clinic a week ago and diagnosed with UTI and BV and started on macrobid and flagyl. Pt stopped macrobid because it made her nauseated but will complete flagyl today. Pt deneis fever. Pt also says her laegs swell when she stands for long time and she feels weak. Related Data Home Medications Medication Instructions Recorded Confirmed levothyroxine 125 mcg tablet 125 mcg PO DAILY 01/16/22 03/11/23 (Synthroid) Allergies Allergy/AdvReac Type Severity Reaction Status Date / Time Iodine and Iodide Containing Allergy Unknown Verified 03/18/23 08:11 Produc Review of Systems Review of Systems: All systems reviewed & are unremarkable except as noted in HPI and below PMFSH Past Medical History Medical History delivery delivered Hypothyroidism Insertion of Nexplanon 2019 Obesity Thyroid disease Surgical History Surgical History H/O section X1 History of tonsillectomy and adenoidectomy Family History Family History Father Hypercholesteremia Mother Hypercholesteremia Hypertension Diabetes mellitus Social History Social History (Updated 03/11/23 @ 14:20 by Teresa Darling MA) Smoking status: Never smoker Tobacco type: cigarettes Second hand tobacco smoke exposure: No Alcohol intake: former Substance use: never Current Housing: Decline to Answer Concerned About Future Housing: Decline to Answer Difficulty Paying Gas/Electric Bills: Decline to Answer Difficulty Paying for Meds: Decline to Answer Currently Unemployed: Decline to Answer Education: Decline to Answer Difficulty w/ Childcare or Family Care: Decline to Answer Living arrangements: with family Additional living arrangements comments: spouse and child Occupation/Education: occupation Additional occupation/education comments: [employer] Gender identity (if verbalized by the patient): Female Sexual Orientation (if Verbalized by the Patient): Straight or Heterosexual Exam Const: General: healthy appearing Nutritional Appearance: well nourished Orientation/consciousness: patient oriented x3 Limitations: no limitations Neck: Neck: normal visual inspection Resp: Effort & Inspection: normal respiratory effort Auscultation: clear to auscultation bilaterally Cardio: Rate: regular rate Rhythm: regular rhythm GI: GI Palp: Yes Soft to palpation Auscultation: normal bowel sounds Back/Spine/Pelvis: Back: CVA tenderness Skin: General skin exam: normal color Rashes: no rashes Wounds: no wounds Neuro: General: patient oriented x3, moves all extremities, no meningeal signs, no focal motor deficits and CN's II-XI intact bilaterally Speech: normal speech Extrem: General: normal to inspection and no clubbing, cyanosis or edema Psych: Mental Status: mental status grossly normal Affect: normal affect Attitude: cooperative Course Vital Signs Vital signs: Vital Signs Temperature 98.8 F 03/18/23 07:55 Pulse Rate 61 03/18/23 07:55 Respiratory Rate 16 03/18/23 07:55 Blood Pressure 105/75 03/18/23 07:55 Pulse Oximetry 100 03/18/23 07:55 Oxygen Delivery Room Air 03/18/23 07:55 Temperature 98.8 F 03/18/23 07:55 Pulse Rate 69 03/18/23 10:05 Respiratory Rate 17 03/18/23 10:05 Blood Pressure 105/78 03/18/23 10:05 Pulse Oximetry 100 03/18/23 10:05 Oxygen Delivery Room Air 03/18/23 07:55 MDM - Abdominal Pain MDM Narrative Medical dec
[2023-03-18] MEDS: KETOROLAC 30 MG/ML VIAL (*BKC) IV PUSH (08:12)
[2023-03-18 08:16] LABS: Basophils Percent Auto 0.5 % (0.2-1.2); Eosinophils Absolute Auto 0.1 K/mm3 (0-0.3); Eosinophils Percent Auto 1.5 % (0-4.4); Hematocrit 38.6 % (37.0-47.0); Hemoglobin 12.9 g/dL (12.0-15.0); Immature Granulocyte Absolute 0.02 K/mm3 (0.00-0.031); Immature Granulocyte Percent A 0.2 % (0-0.5); Lymphocytes Absolute Auto 3.49 K/mm3 (0.9-3.2); Lymphocytes Percent Auto 40.8 % (18.3-44.2); Mean Corpuscular HGB Conc 33.4 g/dl (32-36); Mean Corpuscular Hemoglobin 31.1 pg (26-34); Mean Platelet Volume 9.7 fl (7.4-10.4); Monocytes Absolute Auto 0.9 K/mm3 (0.1-0.6); Platelet Count Result 292 k/mm3 (150-375); Red Blood Count 4.15 M/mm3 (4.2-5.4); White Blood Count 8.6 K/mm3 (4.5-10.0)
[2023-03-18 08:26] LABS: Alanine Aminotransferase 41 U/L (6-35); Alkaline Phosphatase 57 U/L (38-126); Anion Gap 5 mmol/L (8-16); Aspartate Amino Transferase 37 U/L (14-36); Bilirubin,Total 0.4 mg/dL (0.2-1.3); Blood Urea Nitrogen 13 mg/dL (7-17); Calcium 8.7 mg/dL (8.4-10.2); Carbon Dioxide 29 mmol/L (22-30); Chloride 104 mmol/L (98-107); Estimated CRCL calculation 88 ml/min; Estimated Glomerular Filt Rate > 60; Glucose 89 mg/dL (65-110); Potassium 3.8 mmol/L (3.4-5.0); Sodium 138 mmol/L (137-145)
[2023-03-18 08:42] LABS: Appearance Urine Clear (Clear); Bacteria Urine None Seen /hpf; Bilirubin Urine Negative (Negative); Blood Urine Negative (Negative); Color Urine Yellow (Yellow); Glucose Urine UA Negative (Negative); Ketones Urine Negative (Negative); Leukocyte Esterase Ur 1+ LEU/UL (Negative); Need Manual Microscopic Reviewed; Nitrate Urine Negative (Negative); Non Pathogenic Casts 0-2; Protein Urine Negative (Negative); Specific Grav Ur 1.018 (1.001-1.035); Squamous Epithelial Cell Urine Few /hpf (Few); Urobilinogen Urine 0.2 mg/dL (<2.0); WBC Urine 0-5 /hpf
[2023-03-18 08:44] LABS: Add Urine Microscopic? YES
[2023-03-18 09:09] LABS: Lactic Acid Reflex 0.9 mmol/L (0.7-2.0)
[2023-03-18 10:05] VITALS: BP 105/78; PULSE 69; RESP 17; O2SAT 100
== END 2023-03-18 10:07 | disposition home or self-care (01) ==
PROVIDERS: Emergency Provider Emergency Medicine; PCP Physician Assistant
DX: R10.32 Left lower quadrant pain (principal); E03.9 Hypothyroidism, unspecified
CPT/HCPCS: 36415; 74176; 80053; 81001; 81025; 83605; 85025; 96374; 99284; J1885

== ENCOUNTER 2025-04-15 14:38 | Emergency (ER) | payer SELFPAY ==
--- NOTE | ~2025-04-15 | XR_ITS ---
EXAMINATION: XR chest 2V 04/15/2025 15:06 INDICATION: Cough and shortness of breath 2 weeks TECHNIQUE:Frontal and lateral images of the chest were obtained. COMPARISON: None available FINDINGS: The lungs are clear. The cardiomediastinal silhouette is within normal limits. There are no pleural effusions. There is no pneumothorax suspected. IMPRESSION: 1: NO ACUTE CARDIOPULMONARY DISEASE. Reviewed, dictated and finalized at location Q.
--- NOTE | 2025-04-15 14:42 | ED_ITS ---
HPI - URI/Sore Throat General Chief Complaint: Upper Respiratory Infection Stated Complaint: HEADACHE/DIARRHEA/VOMITING/SOB Time Seen by Provider: 04/15/25 14:42 Source: patient Mode of arrival: ambulatory Limitations: no limitations History of Present Illness HPI Narrative: 34 yo F presents with c/o cough, chest congestion, chest tightness for 2 wks. Afebrile. R ear pain, sinus congestion and pressure or 2 to 3 days. 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 pt is well appearing. Smiling. Speaking in full sentences. All systems reviewed and negative except as noted above. Related Data Home Medications ?Medication ?Instructions ?Recorded ?Confirmed ?Last Taken ?Type levothyroxine 125 mcg tablet 125 mcg PO DAILY 01/16/22 03/11/23 Unknown History (Synthroid) Allergies Allergy/AdvReac Type Severity Reaction Status Date / Time Iodine and Iodide Containing Allergy Unknown Verified 04/15/25 14:47 Produc [facility] Past Medical History Medical History delivery delivered Hypothyroidism Insertion of Nexplanon 2019 Obesity Thyroid disease Surgical History Surgical History H/O section X1 History of tonsillectomy and adenoidectomy Family History Family History Father Hypercholesteremia Mother Hypercholesteremia Hypertension Diabetes mellitus Social History Social History (Updated 03/11/23 @ 14:20 by Teresa Darling CMA) Smoking status: Never smoker Tobacco type: cigarettes Second hand tobacco smoke exposure: No Alcohol intake: former Substance use: never Current Housing: Decline to Answer Concerned About Future Housing: Decline to Answer Difficulty Paying Gas/Electric Bills: Decline to Answer Difficulty Paying for Meds: Decline to Answer Currently Unemployed: Decline to Answer Education: Decline to Answer Difficulty w/ Childcare or Family Care: Decline to Answer Living arrangements: with family Additional living arrangements comments: spouse and child Occupation/Education: occupation Additional occupation/education comments: [employer] Gender identity (if verbalized by the patient): Female Sexual Orientation (if Verbalized by the Patient): Straight or Heterosexual Comments At time of signature, agree with nursing past medical, surgical, social and family history. There is no relevant family history pertinent to the presenting complaint. Exam Narrative: GENERAL: This is a well-nourished, well-developed patient, in no apparent distre ss. HEAD: normocephalic, atraumatic. EYES: PERRL. Sclera clear/white. Vision is grossly intact. EARS: External ears normal, auditory canals clear and without drainage, right TM is erythematous, slightly bulging, poor yellow fluid along bottom of TM. Left TM normal. Hearing grossly intact. NOSE: External nose normal with mild congestion, clear nasal drainage. THROAT: Mucous membranes moist, posterior pharynx clear. NECK: Neck supple, non-tender without lymphadenopathy, masses or thyromegaly. CARDIOVASCULAR: Regular rate and rhythm without murmurs, gallops, or rubs. RESPIRATORY: Clear to auscultation. Breath sounds equal bilaterally. No wheezes, rales, or rhonchi. SKIN: warm, Dry, intact with no suspicious lesions or rash, good texture and turgor. NEURO: awake, alert, and oriented to person, place and time. There were no obvious focal neurologic abnormalities. EXTREMITIES: No joint tenderness, effusion, or edema noted. Course Course Level of Care: Express Care Visit Vital Signs Vital signs: Vital Signs Temperature 36.3 C L 04/15/25 14:43 Pulse Rate 79 04/15/25 14:43 Respiratory Rate 20 04/15/25 14:43 Blood Pressure 112/79 04/15/25 14:43 Pulse Oximetry 100 04/15/25 14:43 Oxygen Delivery Room Air 04/15/25 14:43 Temperature 36.3 C L 04/15/25 14:43 Pulse Rate 90 04/15/25 15:47 Respiratory Rate 20 04/15/25 15:47 Blood Pressure 112/79 04/15/25 14:43 Pulse Oximetry 99 04/15/25 15:47 Oxygen Delivery Room Air 04/15/25 14:43 Reviewed MDM - URI/Sore Throat MDM Narrative Medical decision making narrative: Chest x-ray normal. Discussed results with patient. At discharge patient asked for breathing treatment. Patient wanted to see a breathing treatment would help with her shortness of breath. Patient had no respiratory distress. After breathing treatment patient stated she felt better. Oxygen saturation remained at 100% room air at discharge. Patient well-appearing, nontoxic. Differential Diagnosis Differential diagnosis: Likely upper respiratory infection, otitis media, sinusitis, viral infection and bronchitis Imaging Data My impression: Agree with radiologist Radiologist's impression: EXAMINATION: XR chest 2V 04/15/2025 15:06 INDICATION: Cough and shortness of breath 2 weeks TECHNIQUE:Frontal and lateral images of the chest were obtained. COMPARISON: None available FINDINGS: The lungs are clear. The cardiomediastinal silhouette is within normal limits. There are no pleural effusions. There is no pneumothorax suspected. IMPRESSION: 1: NO ACUTE CARDIOPULMONARY DISEASE. Discharge Plan Discharge Clinical Impression: Acute bronchitis, Acute right otitis media Patient Disposition: Home Condition: Stable Instructions: Antibiotic Form, Ear Infection (ED), Acute Bronchitis (ED) Additional Instructions: Your chest x-ray was normal. Take antibiotic as prescribed until gone. Use albuterol inhaler every 4-6 hours as needed for coughing, shortness of breath, wheezing. Drink at least 64 oz of water a day. Follow-up with primary care physician if symptoms are not improving. Patient Language: Vietnamese Prescriptions: New benzonatate 200 mg capsule 200 mg PO TID PRN (Reason: cough) Qty: 20 0RF prednisone 20 mg tablet 40 mg PO DAILY 5 Days Qty: 10 0RF amoxicillin 875 mg tablet 875 mg PO Q12H 10 Days Qty: 20 0RF albuterol sulfate 90 mcg/actuation HFA aerosol inhaler 2 puff inhalation Q4-6H PRN (Reason: shortness of breath or wheezing) Qty: 8.5 0RF No Action levothyroxine [Synthroid] 125 mcg tablet 125 mcg PO DAILY Follow-up/Referrals: Jacob,AURELIANO Nava [Primary Care Provider, Unknown] Time of Disposition: 15:24
[2025-04-15 14:43] VITALS: BP 112/79; PULSE 79; RESP 20; TEMP 36.3; O2SAT 100
[2025-04-15 15:32] VITALS: PULSE 71; RESP 20; O2SAT 97
[2025-04-15] MEDS: IPRATROPIUM 0.5 MG/ALBUTEROL SULFATE 2.5 MG AMPUL.NEB 3 ML INHALATION (15:32)
[2025-04-15 15:47] VITALS: PULSE 90; RESP 20; O2SAT 99
== END 2025-04-15 15:53 | disposition home or self-care (01) ==
PROVIDERS: Emergency Provider Nurse Practitioner Family; PCP Physician Assistant
DX: J20.9 Acute bronchitis, unspecified (principal); E03.9 Hypothyroidism, unspecified
CPT/HCPCS: 71046; 94640; 99213; G0463

== ENCOUNTER 2025-04-18 05:01 | Observation (INO) | payer SELFPAY ==
--- OUTSIDE RECORDS SUMMARY | 2024-04-12 06:30 | XMS_ITS ---
Author Organization [facility] Address [address] [place], [place] [id number] Care Team Providers Care Day Haul Youth Supervisor Name Role Phone Mikaela Serna Unavailable [phone] REASON FOR VISIT Thyroid Encounters Encounter Location Date Provider Diagnosis [address] [address] 04/12/2024 Mikaela Serna Plan Of Treatment No Information Progress Notes * Suyapa GRIGSBYDOB:1990 (34 yo F)Acc No.[id number]:04/12/2024 Progress Notes Patient: Jennifer Johnsonana Provider: CARMEL Roque :1990 A ge:33 Y S ex:Female Date:04/12/2024 Phone: Address:[address] [place] [address] [facility] Subjective: * Chief Complaints: * T hyroid * Electronic signature of KOMAL Corral on 04/18/2025 at 05:03 AM CDT Sign off status: Pending * Provider: CARMEL Roque Date: 04/12/2024 Generated for Esaui ng/Faruben/eTransmitting on: 04/18/2025 05:03 AM CDT
--- OUTSIDE RECORDS SUMMARY | 2024-04-12 06:30 | XMS_ITS ---
Author Organization [facility] Address [address] [facility] [place] [address] Care Team Providers Care Industrial Electrician Name Role Phone Mikaela Serna Unavailable [phone] REASON FOR VISIT Thyroid Encounters Encounter Location Date Provider Diagnosis [facility] [address] [address] 04/12/2024 Mikaela Serna Plan Of Treatment No Information Progress Notes * Suyapa GRIGSBYDOB:1990 (34 yo F)Acc No.[id number]:04/12/2024 Progress Notes Patient: Suyapa ELDER Provider: BETH Milner :1990 A ge:33 Y S ex:Female Date:04/12/2024 Phone: Address:[address] [place] [address] [facility] Subjective: * Chief Complaints: * 1 . Thyroid. * Medical History: Objective: * Vitals: Assessment: Plan: * Treatment: * Billing Information: * Visit Code: * Procedure Codes: * Electronic signature of BETH Corral on 04/18/2025 at 05:03 AM CDT Sign off status: Pending * Provider: BETH Milner Date: 04/12/2024 Generated for Adriana ng/Faruben/eTransmitting on: 04/18/2025 05:03 AM CDT
--- OUTSIDE RECORDS SUMMARY | 2024-04-22 08:30 | XMS_ITS ---
Author Organization [facility] Address [address] [facility] [place] [address] Care Team Providers Care Overseamer Name Role Phone Mikaela Serna Unavailable [phone] REASON FOR VISIT Thyroid Encounters Encounter Location Date Provider Diagnosis [facility] [place] [address] [place] [address] 04/22/2024 Mikaela Serna Plan Of Treatment No Information Progress Notes * Suyapa GRIGSBYDOB:1990 (34 yo F)Acc No.[id number]:04/22/2024 Progress Notes Patient: Suyapa ELDER Provider: BETH Milner :1990 A ge:33 Y S ex:Female Date:04/22/2024 Phone: Address:[address] [place] [address] [facility] Subjective: * Chief Complaints: * 1 . Thyroid. * Medical History: Objective: * Vitals: Assessment: Plan: * Treatment: * Billing Information: * Visit Code: * Procedure Codes: * Electronic signature of BETH Corral on 04/18/2025 at 05:03 AM CDT Sign off status: Pending * Provider: BETH Milner Date: 04/22/2024 Generated for Adriana huang/Jorge/eTransmitting on: 04/18/2025 05:03 AM CDT
--- OUTSIDE RECORDS SUMMARY | 2024-04-22 08:30 | XMS_ITS ---
Author Organization [facility] Address [address] [place], [place] [id number] Care Team Providers Care Melter Supervisor Electric Arc Furnace Name Role Phone Mikaela Serna Unavailable [phone] REASON FOR VISIT Thyroid Encounters Encounter Location Date Provider Diagnosis [facility] [address] [place] [id number] 04/22/2024 Mikaela Serna Plan Of Treatment No Information Progress Notes * Suyapa GRIGSBYDOB:1990 (34 yo F)Acc No.[id number]:04/22/2024 Progress Notes Patient: Jennifer Johnsonana Provider: CARMEL Roque :1990 A ge:33 Y S ex:Female Date:04/22/2024 Phone: Address:[address] [place] [address] [facility] Subjective: * Chief Complaints: * T hyroid * Electronic signature of KOMAL Corral on 04/18/2025 at 05:03 AM CDT Sign off status: Pending * Provider: CARMEL Roque Date: 04/22/2024 Generated for Printi ng/Faadelag/eTransmitting on: 04/18/2025 05:03 AM CDT
[2025-04-18] VITALS (35 sets, daily range): BP systolic 102–128; BP diastolic 64–100; PULSE 54–108; RESP 14–23; TEMP 36.4–36.9; O2SAT 96–100; BMI 32.5
--- NOTE | ~2025-04-18 | NM_ITS ---
EXAMINATION: NM lung vent and perfusion DATE: 04/19/2025 12:35 INDICATION: Shortness of breath TECHNIQUE: 9.057 mCi xenon-133 by inhalation and 5.1 mCi Tc-99m MAA by intravenous route. Scintigraphic images of the chest were obtained. COMPARISON: Chest radiograph dated 04/18/25 FINDINGS: There is homogeneous radiotracer activity throughout the lungs on the single breath ventilation sequence. There is relatively homogeneous perfusion throughout the lungs. No discrete ventilation and perfusion mismatch is identified. IMPRESSION: 1. Normal study. Very low probability for pulmonary embolism. Reviewed, dictated and finalized at location A.
--- NOTE | ~2025-04-18 | XR_ITS ---
EXAMINATION: XR chest 1V portable DATE: 04/18/2025 06:01 INDICATION: Shortness of breath TECHNIQUE: frontal view of the chest was obtained. COMPARISON: Chest radiograph dated 04/15/2025 FINDINGS: The lungs are clear with no focal airspace opacities, pulmonary edema, pleural effusion or pneumothorax. The cardiomediastinal silhouette is normal. Visualized bones and soft tissues are unremarkable. IMPRESSION: 1. No acute cardiopulmonary disease. Reviewed, dictated and finalized at location A.
--- NOTE | 2025-04-18 05:02 | ECG_ITS ---
Test Date: 2025-04-18 05:15:06 Measurements Intervals [place] Rate: 66 P: 49 AK: 148 QRS: 29 QRSD: 97 T: 25 QT: 377 QTc: 396 Interpretive Statements SINUS RHYTHM No previous ECG available for comparison Electronically Signed On 04-18-2025 11:43:11 CDT by Dion Morton M.D.
--- OUTSIDE RECORDS SUMMARY | 2025-04-18 05:03 | XMS_ITS | Encounter Summary ---
Author Organization [facility] Address [address] [place] [address] Care Team Providers Care Tube Sizer And Cutter Operator Name Role Phone Unavailable Primary Care Provider Unavailabl e Prior Encounters Date Type Department Care Team Description 07/12/2024 9:00 AM FOUNTAIN PEN TURNER Office Visit [facility] [address] [place] [phone] Roby Oseguera DMD 07/05/2024 3:00 PM FOUNTAIN PEN TURNER Office Visit [facility] [address] [place] [phone] Roby Oseguera DMD 11/04/2022 Travel 11/04/2022 1:45 PM CDT Office Visit [address] [phone] Grayson Gudino DDS 06/12/2022 2:30 PM CDT Office Visit [address] [phone] Grayson Gudino DDS Plan of Treatment Not on file Procedures Procedure Name Priority Date/Time Associated Diagnosis Comments NC X-RAY Routine 07/12/2024 9:00 AM FOUNTAIN PEN TURNER 2 CEMENT CROWN Routine 07/12/2024 9:00 AM FOUNTAIN PEN TURNER 2 CERECFIRED CROWNPOST Routine 9:00 AM FOUNTAIN PEN TURNER 2 CORE BUILDUP, INCLUDING ANY PINS WHEN REQUIRED Routine 07/12/2024 9:00 AM FOUNTAIN PEN TURNER 2 ENDODONTIC THERAPY, MOLAR TOOTH (EXCLUDING FINAL SABIANISM) Routine 07/12/2024 9:00 AM FOUNTAIN PEN TURNER PLAN VISIT FEE Routine 07/05/2024 3:00 PM FOUNTAIN PEN TURNER PANORAMIC RADIOGRAPHIC IMAGE Routine 07/05/2024 3:00 PM FOUNTAIN PEN TURNER LIMITED ORAL EVALUATION - PROBLEM FOCUSED Routine 07/05/2024 3:00 PM FOUNTAIN PEN TURNER TOPICAL APPLICATION OF FLUORIDE VARNISH Routine 11/04/2022 1:45 PM CDT ORAL HYGIENE INSTRUCTIONS Routine 2022 1:45 PM CDT PROPHYLAXIS - ADULT Routine 11/04/2022 1 :45 PM CDT COMPREHENSIVE ORAL EVALUATION - NEW OR ESTABLISHED PATIENT Routine 11/04/2022 1:45 PM CDT 31 MAYANK COMPOSITE FILLING Routine 11/05/19 23 12:00 AM CDT 30 O COMPOSITE FILLING Routine 3 12:00 AM CDT 19 B COMPOSITE FILLING Routine 3 12:00 AM CDT 18 MAYANK COMPOSITE FILLING Routine 11/05/19 23 12:00 AM CDT 14 LO COMPOSITE FILLING Routine 11/05/19 23 12:00 AM CDT 3 LO COMPOSITE FILLING Routine 3 12:00 AM CDT 2 LO COMPOSITE FILLING Routine 3 12:00 AM CDT INTRAORAL PHOTO Routine 06/12/2022 2:30 PM CDT INTRAORAL PHOTO Routine 06/12/2022 2:30 PM CDT INTRAORAL PHOTO Routine 06/12/2022 2:30 PM CDT INTRAORAL PHOTO Routine 06/12/2022 2:30 PM CDT PANORAMIC RADIOGRAPHIC IMAGE Routine 06/12/2022 2:30 PM CDT INTRAORAL - COMPREHENSIVE SERIES OF RADIOGRAPHIC IMAGES Routine 06/12/2022 2:30 PM CDT Visit Diagnoses Not on file [facility]
--- OUTSIDE RECORDS SUMMARY | 2025-04-18 05:03 | XMS_ITS | Clinical Summary ---
Author Organization [facility] Health Address [address] [place] [address] Care Team Providers Care Manager Medical Device Name Role Phone Unavailable Primary Care Provider Unavailabl e Allergies Active Allergy Reactions Criticality Noted Date Comments Iodinated Contrast Media Swelling 07/02/2021 Medications No known medications Active Problems No known active problems Social History Tobacco Use Types Packs/Day Years Used Date Smoking Tobacco: Never Assessed Comments Unknown Sex and Gender Information Value Date Recorded Sex Assigned at Not on file Legal Sex Female 8:51 AM PDT Gender Identity Not on file Sexual Orientation Not on file Plan of Treatment Health Maintenance Due Date Last Done Comments Dental X-Ray: Bitewings 12/12/2022 06/12/2022 Dental Oral Exam 05/08/2023 11/04/2022 Dental Prophylaxis 05/08/2023 11/04/2022 Dental X-Ray: Full Mouth 06/14/2025 06/13/2022, 05/19 Dental X-Ray: Panoramic 07/07/2027 07/06/2024, 07/05, 06/12/2022 Procedures Procedure Name Priority Date/Time Associated Diagnosis Comments PANORAMIC RADIOGRAPHIC IMAGE Routine 07/05/2024 3:00 PM COMMUNICATIONS TECHNOLOGIST PROPHYLAXIS - ADULT Routine 11/04/2022 1 :45 PM CDT COMPREHENSIVE ORAL EVALUATION - NEW OR ESTABLISHED PATIENT Routine 11/04/2022 1:45 PM CDT INTRAORAL - COMPREHENSIVE SERIES OF RADIOGRAPHIC IMAGES Routine 06/12/2022 2:30 PM CDT from Last 3 Months or Most Recently Relevant to Health Maintenance Insurance [facility]
--- OUTSIDE RECORDS SUMMARY | 2025-04-18 05:03 | XMS_ITS | Patient Health Record ---
Author Organization [facility] Address [address] [place], [place] [id number] Care Team Providers Care Trimming Cutter Name Role Phone Mikaela Serna Unavailable [phone] Reason For Referral No Information Plan Of Treatment No Information
--- OUTSIDE RECORDS SUMMARY | 2025-04-18 05:03 | XMS_ITS | Patient Health Record ---
Author Organization [facility] Address [address] [place] [address] Care Team Providers Care Route Specialist Name Role Phone Mikaela Serna Unavailable [phone] Reason For Referral No Information Plan Of Treatment No Information
--- OUTSIDE RECORDS SUMMARY | 2025-04-18 05:31 | XMS_ITS | Clinical Summary ---
Author Organization [facility] Health Address [address] [place] [address] Care Team Providers Care Planner Scheduler Name Role Phone Unavailable Primary Care Provider [...] PANORAMIC RADIOGRAPHIC IMAGE Routine 07/05/2024 3:00 PM CUSTOMER ASSOCIATE PROPHYLAXIS - ADULT Routine 11/04/2022 1 :45 PM CDT COMPREHENSIVE ORAL EVALUATION - NEW OR ESTABLISHED PATIENT Routine 11/04/2022 1:45 PM CDT INTRAORAL - COMPREHENSIVE SERIES OF RADIOGRAPHIC IMAGES Routine 06/12/2022 2:30 PM CDT from Last 3 Months or Most Recently Relevant to Health Maintenance Insurance [employer] [facility]
--- OUTSIDE RECORDS SUMMARY | 2025-04-18 05:31 | XMS_ITS | Encounter Summary ---
Author Organization [facility] Address [address] [place] [address] Care Team Providers Care Party Bus Driver Name Role Phone Unavailable Primary Care Provider Unavailabl e Prior Encounters Date Type Department Care Team Description 07/12/2024 9:00 AM WEDDING DESIGNER Office Visit [facility] [address] [place] [phone] Roby Oseguera DMD 07/05/2024 3:00 PM WEDDING DESIGNER Office Visit [facility] [address] [place] [phone] Roby Oseguera DMD 11/04/2022 Travel 11/04/2022 1:45 PM CDT Office Visit [address] [phone] Grayson Gudino DDS 06/12/2022 2:30 PM CDT Office Visit [address] [phone] Grayson Gudino DDS Plan of Treatment Not on file Procedures Procedure Name Priority Date/Time Associated Diagnosis Comments NC X-RAY Routine 07/12/2024 9:00 AM WEDDING DESIGNER 2 CEMENT CROWN Routine 07/12/2024 9:00 AM WEDDING DESIGNER 2 CERECFIRED CROWNPOST Routine 9:00 AM WEDDING DESIGNER 2 CORE BUILDUP, INCLUDING ANY PINS WHEN REQUIRED Routine 07/12/2024 9:00 AM WEDDING DESIGNER 2 ENDODONTIC THERAPY, MOLAR TOOTH (EXCLUDING FINAL CHEONDOISM) Routine 07/12/2024 9:00 AM WEDDING DESIGNER PLAN VISIT FEE Routine 07/05/2024 3:00 PM WEDDING DESIGNER PANORAMIC RADIOGRAPHIC IMAGE Routine 07/05/2024 3:00 PM WEDDING DESIGNER LIMITED ORAL EVALUATION - PROBLEM FOCUSED Routine 07/05/2024 3:00 PM WEDDING DESIGNER TOPICAL APPLICATION OF FLUORIDE VARNISH Routine 11/04/2022 [...] CDT Visit Diagnoses Not on file [facility]
--- NOTE | 2025-04-18 05:35 | ED_ITS ---
HPI - General Adult General Chief complaint: Shortness of Breath/Dyspnea Stated complaint: sob Time Seen by Provider: 04/18/25 05:04 History of Present Illness HPI narrative: Patient 34-year-old female who presents emergency department with chief complaint of shortness of breath. 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 Patient reports no fever reports no significant past medical history Related Data Home Medications ?Medication ?Instructions ?Recorded ?Confirmed ?Last Taken ?Type levothyroxine 125 mcg tablet 125 mcg PO DAILY 01/16/22 03/11/23 Unknown History (Synthroid) Allergies Allergy/AdvReac Type Severity Reaction Status Date / Time Iodine and Iodide Containing Allergy Unknown Verified 04/18/25 05:56 Produc Review of Systems 2 Review of Systems: A 10 system review of systems was completed on the patient and is negative except for what is stated in the HPI. Nursing and ancillary documentation was reviewed. [facility] Past Medical History Medical History Thyroid disease Insertion of Nexplanon 2019 delivery delivered Hypothyroidism Obesity Surgical History Surgical History History of tonsillectomy and adenoidectomy H/O section X1 Family History Family History Father Hypercholesteremia Mother Hypercholesteremia Hypertension Diabetes mellitus Social History Social History Smoking status: Never smoker Tobacco type: cigarettes Second hand tobacco smoke exposure: No Alcohol intake: former Substance use: never Current Housing: Decline to Answer Concerned About Future Housing: Decline to Answer Difficulty Paying Gas/Electric Bills: Decline to Answer Difficulty Paying for Meds: Decline to Answer Currently Unemployed: Decline to Answer Education: Decline to Answer Difficulty w/ Childcare or Family Care: Decline to Answer Living arrangements: with family Additional living arrangements comments: spouse and child Occupation/Education: occupation Additional occupation/education comments: cleaning business Gender identity (if verbalized by the patient): Female Sexual Orientation (if Verbalized by the Patient): Straight or Heterosexual Course Vital Signs Vital signs: Vital Signs Pulse Rate 85 04/18/25 05:05 Respiratory Rate 20 04/18/25 05:05 Blood Pressure 128/100 H 04/18/25 05:05 Pulse Oximetry 98 04/18/25 05:05 Oxygen Delivery Room Air 04/18/25 05:05 Temperature 36.8 C 04/18/25 05:23 Pulse Rate 59 L 04/18/25 06:47 Respiratory Rate 19 04/18/25 06:47 Blood Pressure 111/83 04/18/25 06:47 Pulse Oximetry 99 04/18/25 06:47 Oxygen Delivery Room Air 04/18/25 05:23 Medical Decision Making MDM Narrative Medical decision making narrative: Differential diagnosis includes pneumonia, CHF, ACS, bronchitis, The patient is currently on steroids and antibiotics prescribed by urgent care Troponin was negative D-dimer was less than 0.27 BNP was 153 COVID flu RSV and strep were negative Patient received DuoNeb in the emergency department and is feeling much better at this time With ambulation the patient's heart rate went up to 111 and then her oxygen saturation dropped down to 89% Vital Signs Vital Signs: Vital Signs Pulse Rate 85 04/18/25 05:05 Respiratory Rate 20 04/18/25 05:05 Blood Pressure 128/100 H 04/18/25 05:05 Pulse Oximetry 98 04/18/25 05:05 Oxygen Delivery Room Air 04/18/25 05:05 Temperature 36.8 C 04/18/25 05:23 Pulse Rate 59 L 04/18/25 06:47 Respiratory Rate 19 04/18/25 06:47 Blood Pressure 111/83 04/18/25 06:47 Pulse Oximetry 99 04/18/25 06:47 Oxygen Delivery Room Air 04/18/25 05:23 Lab Data 04/18/25 05:38 04/18/25 05:38 Labs: Lab Results 04/18/25 Range/Units 05:38 WBC 15.1 H (4.5-10.0) K/mm3 RBC 4.06 L (4.2-5.4) M/mm3 Hgb 12.4 (12.0-15.0) g/dL Hct 36.8 L (37.0-47.0) % MCV 90.6 (80-100) fl MCH 30.5 (26-34) pg MCHC 33.7 (32-36) g/dl RDW 12.5 (11.5-14.5) % Plt Count 280 (150-375) k/mm3 MPV 9.7 (7.4-10.4) fl Immature Gran % (Auto) 0.5 (0-0.5) % Neut % (Auto) 62.8 (45.5-73.1) % Lymph % (Auto) 28.1 (18.3-44.2) % [place] % (Auto) 7.7 (2.6-8.5) % Eos % (Auto) 0.6 (0-4.4) % Baso % (Auto) 0.3 (0.2-1.2) % Lymph # (Auto) 4.23 H (0.9-3.2) K/mm3 [place] # (Auto) 1.2 H (0.1-0.6) K/mm3 Eos # (Auto) 0.1 (0-0.3) K/mm3 Baso # (Auto) 0.0 (0.0-0.1) K/mm3 Abs Immat Gran (auto) 0.07 H (0.00-0.031) K/mm3 Absolute Neuts (auto) 9.5 H (1.3-6.7) K/mm3 Absolute Nucleated RBC 0.000 (0.0-0.012) K/mm3 Nucleated RBC % 0.0 (0.0-0.2) % D-Dimer < 0.27 (<0.48) ug/mL Sodium 136 L (137-145) mmol/L Potassium 3.6 (3.4-5.0) mmol/L Chloride 108 H (98-107) mmol/L Carbon Dioxide 21 L (22-30) mmol/L Anion Gap 7 (4-12) mmol/L BUN 13 (7-17) mg/dL Creatinine 0.58 L (0.7-1.0) mg/dL Estim Creat Clear Calc 104 ml/min Estimated GFR > 60 (59 - ) Glucose 98 (65-110) mg/dL Calcium 8.8 (8.4-10.2) mg/dL Total Bilirubin 0.2 (0.2-1.3) mg/dL AST 28 (14-36) U/L ALT 26 (6-35) U/L Alkaline Phosphatase 66 (38-126) U/L Troponin I < 0.012 (0.000-0.034) ng/mL NT-Pro-B Natriuret Pep 153 H (19.9-100) pg/mL Total Protein 6.6 (6.3-8.2) g/dL Albumin 3.8 (3.5-5.1) g/dL Influenza A (RT-PCR) Negative (Negative) Influenza B (RT-PCR) Negative (Negative) RSV (RT-PCR) Negative (Negative) SARS-CoV-2 RNA (RT-PCR) Negative (Negative) Group A Strep (PCR) Not detected (Negative) Discharge Plan Discharge Clinical Impression: Acute hypoxic respiratory failure, Acute bronchitis Patient Disposition: Still a Patient Condition: Stable Patient Language: Azeri Prescriptions: No Action benzonatate 200 mg capsule 200 mg PO TID PRN (Reason: cough) Qty: 20 0RF prednisone 20 mg tablet 40 mg PO DAILY 5 Days Qty: 10 0RF amoxicillin 875 mg tablet 875 mg PO Q12H 10 Days Qty: 20 0RF albuterol sulfate 90 mcg/actuation HFA aerosol inhaler 2 puff inhalation Q4-6H PRN (Reason: shortness of breath or wheezing) Qty: 8.5 0RF levothyroxine [Synthroid] 125 mcg tablet 125 mcg PO DAILY Follow-up/Referrals: Jacob,AURELIANO Nava [Primary Care Provider, Unknown] Time of Disposition: 07:12
[2025-04-18] MEDS: IPRATROPIUM 0.5 MG/ALBUTEROL SULFATE 2.5 MG AMPUL.NEB 3 ML INHALATION ×4 (05:42→20:44)
[2025-04-18 05:46] LABS: Hematocrit 36.8 % (37.0-47.0); Hemoglobin 12.4 g/dL (12.0-15.0); Immature Granulocyte Percent A 0.5 % (0-0.5); Lymphocytes Absolute Auto 4.23 K/mm3 (0.9-3.2); Mean Corpuscular HGB Conc 33.7 g/dl (32-36); Mean Corpuscular Hemoglobin 30.5 pg (26-34); Mean Corpuscular Volume 90.6 fl (80-100); Nucleated Red Blood Cells Absolute Auto 0.000 K/mm3 (0.0-0.012); Nucleated Red Blood Cells Perc 0.0 % (0.0-0.2); Platelet Count Result 280 k/mm3 (150-375); Red Blood Count 4.06 M/mm3 (4.2-5.4); White Blood Count 15.1 K/mm3 (4.5-10.0)
[2025-04-18 05:59] LABS: Alanine Aminotransferase 26 U/L (6-35); Albumin Level 3.8 g/dL (3.5-5.1); Alkaline Phosphatase 66 U/L (38-126); Anion Gap 7 mmol/L (4-12); Aspartate Amino Transferase 28 U/L (14-36); Bilirubin,Total 0.2 mg/dL (0.2-1.3); Blood Urea Nitrogen 13 mg/dL (7-17); Calcium 8.8 mg/dL (8.4-10.2); Carbon Dioxide 21 mmol/L (22-30); Chloride 108 mmol/L (98-107); Estimated CRCL calculation 104 ml/min; Estimated Glomerular Filt Rate > 60; Glucose 98 mg/dL (65-110); Potassium 3.6 mmol/L (3.4-5.0); Sodium 136 mmol/L (137-145); Total Protein 6.6 g/dL (6.3-8.2)
[2025-04-18 06:10] LABS: NT Pro B Type Natriuretic Pept 153 pg/mL (19.9-100); Troponin I < 0.012 ng/mL (0.000-0.034)
[2025-04-18 06:18] LABS: Strep Group A RT-PCR NOT DETECTED (Negative)
[2025-04-18 06:29] LABS: Influenza A QL RT-PCR Negative (Negative); Influenza B QL RT-PCR Negative (Negative); RSV RNA, RT-PCR Negative (Negative); SARS-CoV-2 RNA PCR Negative (Negative)
--- NOTE | 2025-04-18 07:02 | PC.NURSE ---
Performed ambulatory assessment with walking pulse ox. Patient was ambulated around nurses station. Patient had steady gait, but HR ranged from 80s-111, wiht RR 16-27, and O2 on RA did drop to 89% and patient c/o dizziness. Patient was assisted back to her room, and connected back to her monitor. ERP notified. Patients VS upon returning to [facility] was 96% on RA and 60s HR. Call light within reach.
--- NOTE | 2025-04-18 07:15 | PM.IMHP ---
H&P: HPI History of Present Illness Date/Time: 04/18/25 07:15 Chief Complaint: Shortness of breath Narrative: Irlanda Grigsby is a 34 year old female with with past medical history av hypothyroidism and iodine and iodide contrast allergy who was recently sick from [facility] (acute bronchitis) and treated with steroid and antibiotics -amoxicillin who is here today for worsening of shortness of breath and hypoxia. She also complains with cough, and chest pressure. She denies fever or chills. 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 Her symptoms are gradually getting worse over a month and half. A couple days ago, patient reported she had nausea and vomiting with loose stool. She has not traveled outside the [place] she did have a sick contact. No history of asthma or any lung diseases. She is not smoker. Chest x-ray looks and remarkable on my reading. She has leukocytosis but she was on a steroid. CMP was unremarkable. [facility] Past Medical History Medical History (Updated 04/18/25 @ 07:20 by Ernestina Fair MD) Thyroid disease Insertion of Nexplanon 2019 delivery delivered Hypothyroidism Obesity Surgical History Surgical History History of tonsillectomy and adenoidectomy H/O section X1 Family History Family History Father Hypercholesteremia Mother Hypercholesteremia Hypertension Diabetes mellitus Social History Social History Smoking status: Never smoker Tobacco type: cigarettes Second hand tobacco smoke exposure: No Alcohol intake: former Substance use: never Current Housing: Decline to Answer Concerned About Future Housing: Decline to Answer Difficulty Paying Gas/Electric Bills: Decline to Answer Difficulty Paying for Meds: Decline to Answer Currently Unemployed: Decline to Answer Education: Decline to Answer Difficulty w/ Childcare or Family Care: Decline to Answer Living arrangements: with family Additional living arrangements comments: spouse and child Occupation/Education: occupation Additional occupation/education comments: [employer] Gender identity (if verbalized by the patient): Female Sexual Orientation (if Verbalized by the Patient): Straight or Heterosexual Meds Home Medications and Allergies Home Medications ?Medication ?Instructions ?Recorded ?Confirmed ?Type levothyroxine 125 mcg tablet 125 mcg PO DAILY 01/16/22 03/11/23 History (Synthroid) albuterol sulfate 90 mcg/actuation 2 puff inhalation Q4-6H PRN 04/15/25 Rx aerosol inhaler shortness of breath or wheezing #8.5 grams amoxicillin 875 mg tablet 875 mg PO Q12H 10 days #20 tabs 04/15/25 Rx benzonatate 200 mg capsule 200 mg PO TID PRN cough #20 caps 04/15/25 Rx prednisone 20 mg tablet 40 mg (2 x 20 mg) PO DAILY 5 days 04/15/25 Rx #10 tabs Allergies Allergy/AdvReac Type Severity Reaction Status Date / Time Iodine and Iodide Containing Allergy Unknown Verified 04/18/25 05:56 Produc Vital Signs Vital Signs - 24 hr 04/18/25 05:05 04/18/25 05:15 04/18/25 05:23 Temperature 36.8 C Pulse Rate 85 68 Respiratory Rate 20 22 H Blood Pressure 128/100 H 110/78 Pulse Oximetry 98 98 96 Oxygen Delivery Room Air Room Air Room Air 04/18/25 05:43 04/18/25 06:47 Temperature Pulse Rate 62 59 L Respiratory Rate 16 19 Blood Pressure 111/83 Pulse Oximetry 99 Oxygen Delivery Exam Narrative: APPEARANCE: Not in acute distress, well developed EYES: EOMI HEENT: Normocephalic, atraumatic, OMM RESPIRATORY: No respiratory distress Clear to auscultation bilaterally with no rhonchi wheezing or rales. CARDIOVASCULAR: RRR, S1 and S2 without murmurs rubs or gallops. ABDOMINAL: Soft, nontender, nondistended, no rebound or guarding MSK: 5/5 motor strength throughout her extremities NEURO: Awake and alert. Following commands, speech normal, no focal deficits SKIN:: Warm, dry. No rashes lesions or abrasions PSYCHIATRIC: Normal mood H&P: Results Labs Labs: Short CBC 04/18/25 Range/Units 05:38 WBC 15.1 H (4.5-10.0) K/mm3 Hgb 12.4 (12.0-15.0) g/dL Hct 36.8 L (37.0-47.0) % Plt Count 280 (150-375) k/mm3 [facility] 04/18/25 05:38 Sodium 136 L Potassium 3.6 Chloride 108 H Carbon Dioxide 21 L BUN 13 Creatinine 0.58 L Glucose 98 Calcium 8.8 Cardiac Enzymes 04/18/25 Range/Units 05:38 Troponin I < 0.012 (0.000-0.034) ng/mL Liver Function 04/18/25 Range/Units 05:38 Total Bilirubin 0.2 (0.2-1.3) mg/dL AST 28 (14-36) U/L ALT 26 (6-35) U/L Alkaline Phosphatase 66 (38-126) U/L Albumin 3.8 (3.5-5.1) g/dL Assessment and Plan Assessment and plan (1) Acute bronchitis: Code(s): J20.9 - Acute bronchitis, unspecified Status: Acute (2) Acute hypoxic respiratory failure: Code(s): J96.01 - Acute respiratory failure with hypoxia Status: Acute (3) Bronchospasm: Code(s): J98.01 - Acute bronchospasm Status: Acute (4) Hypothyroidism: Code(s): E03.9 - Hypothyroidism, unspecified Status: Acute Plan 1. Acute hypoxic respiratory failure Likely secondary to URI/bronchospasm 2/2 occupational chemical exposure CBC with leukocytosis without left shift but likely secondary to steroid CMP is unremarkable, influenza a/B negative, COVID negative Chest x-ray did not show obvious consolidations/infiltrates concerning for pneumonia Due to iron diet and contrast will obtain V/Q scan to rule out PE Will give IV Solu-Medrol 125 mg times once Start empiric pneumonia all antibiotics treatment (ceftriaxone plus Zithromax) CBC and BMP daily 2. Hypothyroidism Continue home dose Quality VTE Prophylaxis VTE prophylaxis: pharmacologic ordered (Lovenox)
--- NOTE | 2025-04-18 07:15 | PC.NURSE ---
Report received from Emily VARGAS. Pt resting quietly. States SOB is better while resting
--- NOTE | 2025-04-18 07:55 | PC.NURSE ---
Pt receiving breathing treatment
--- NOTE | 2025-04-18 08:33 | PC.NURSE ---
pt to /S Rm. 319 @ 0833 04/18/25. This RN assumed care.
--- NOTE | 2025-04-18 15:04 | ADMGEN ---
This patient, Suyapa Reyes, was admitted to 3 [facility] Surg Room 319-01. Patient/family oriented to hospital policies and general routines including ID bracelet, bed and alarms, visiting hours, pain management, procedures, bathroom and other care routines, personal items, smoking policy, room service/diet, and visiting hours. Information on how to activate the Rapid Response Team has been discussed. Patient/Family are encouraged to report perceived risks to care and to ask questions if they do not understand what they are told or what they should do.
[2025-04-18] MEDS: cefTRIAXone 1 GM in SODIUM CHLORIDE 0.9% IV 50 ML 100 ML IVPB (18:09)
[2025-04-18] MEDS: AZITHROMYCIN IV 500 MG in SODIUM CHLORIDE 0.9% IV 250 ML IVPB (18:40)
--- NOTE | 2025-04-18 19:06 | PC.NURSE ---
pt showed signs of allergic reaction to IV azithromycin @ 1900 04/18/25; stopped administration of medication. Pt endorses N/V, abdominal pain; redness/irritation observed at IV insertion site.
[2025-04-19] VITALS (12 sets, daily range): BP systolic 106–131; BP diastolic 52–71; PULSE 64–100; RESP 16–20; TEMP 35.8–36.4; O2SAT 97
[2025-04-19] MEDS: IPRATROPIUM 0.5 MG/ALBUTEROL SULFATE 2.5 MG AMPUL.NEB 3 ML INHALATION ×3 (02:15→13:25)
--- NOTE | 2025-04-19 06:00 | ECHO_ITS ---
Patient Info Name: Suyapa Reyes Age: 34 years : 1990 Gender: Female Ht: 60 in Wt: 166 lbs BSA: 1.82 m2 HR: 83 bpm BP: 106 / 52 mmHg Heart Rhythm: Sinus Rhythm Technical Quality: Fair Exam Date: 04/19/2025 10:26 AM Patient Status: I Admit Date: 04/18/2025 Exam Type: CA echo doppler color flow Complete two-dimensional, color flow and Doppler transthoracic echocardiogram is performed. Staff Referring Physician: Giuliano Patel MD Metal Bed Assembler: Tramaine Bello III Attending Provider: Ernestina Fair Summary 1. Poor Apical windows, Pt. unable to hold breath. 2. Complete two-dimensional, color flow and Doppler transthoracic echocardiogram is performed. 3. There is normal biventricular size and systolic function. 4. There are no significant valvular abnormalities. Left Ventricle The left ventricle is normal in size and systolic function. The left ventricular ejection fraction is visually estimated to be 65-70%. Right Ventricle The right ventricle is normal in size and systolic function. Left Atria The left atrium is normal size. Right Atria The right atrium is normal size. Atrial Septum The atrial septum is normal. Aortic Valve The aortic valve is trileaflet and opens well. There is no aortic regurgitation. Pulmonic Valve The pulmonic valve is grossly normal. There is no color Doppler evidence of pulmonic valve regurgitation. Mitral Valve The mitral valve is normal. There is no mitral regurgitation. Tricuspid Valve The tricuspid valve is normal. There is no tricuspid regurgitation. Pericardium/Pleural Pericardium is normal in appearance with no evidence for significant pericardial effusion. Inferior Vena Cava Normal inferior vena cava with >50% collapse upon inspiration consistent with normal right atrial pressure, 3 mmHg. Aorta The aortic root at the level of the sinus of Valsalva measures 2.9 cm in diameter. Left Ventricular Outflow Tract Name Value Normal LVOT 2D LVOT Diameter 2.1 cm LVOT Doppler LVOT Peak Velocity 151 cm/s LVOT Peak Gradient 9 mmHg LVOT Mean Gradient 5 mmHg LVOT VTI 27 cm LVOT VTI/AV VTI Ratio 0.8 LVOT Stroke Volume 90 ml LVOT CO 20.5 l/min LVOT CI 11.3 l/min/m2 Pulmonic Valve Name Value Normal PV Doppler PV Peak Velocity 132 cm/s PV Peak Gradient 7 mmHg PV Mean Gradient 4 mmHg Mitral Valve Name Value Normal MV Doppler MV Peak Gradient 4 mmHg MV Mean Gradient 3 mmHg MV Area (Cont Eq VTI) 3.8 cm2 MV Diastolic Function MV E Peak Velocity 104 cm/s MV A Peak Velocity 95 cm/s MV E/A 1.1 MV Decel Time (PW) 256 ms MV Annular TDI MV E/e' (Septal) 8.8 MV E/e' (Lateral) 7.0 MV E/e' (Average) 7.9 Tricuspid Valve Name Value Normal Estimated PAP/RSVP RA Pressure 3 mmHg <=5 Aortic Valve Name Value Normal AV Doppler AV Peak Velocity 195 cm/s AV Peak Gradient 15 mmHg AV Mean Gradient 7 mmHg AV VTI 32 cm AV Area (Cont Eq VTI) 2.8 cm2 >=3.0 AV Area (Cont Eq Sherwin) 2.6 cm2 AV DI (Sherwin) 0.78 AV Regurgitation 2D LVOT Area 3.4 cm2 Ventricles Name Value Normal LV Dimensions 2D/MM IVS Diastolic Thickness (2D) 0.7 cm 0.6-1.0 LVID Diastole (2D) 4.9 cm 3.8-5.2 LVIW Diastolic Thickness (2D) 0.9 cm 0.6-0.9 LVID Systole (2D) 3.5 cm 2.2-3.5 LVOT Diameter 2.1 cm LV Mass (2D Cubed) 135.10 g 67.00-162.00 LV Mass Index (2D Cubed) 74 g/m2 43-95 Relative Wall Thickness (2D) 0.36 <=0.42 LV Fractional Shortening/Ejection Fraction 2D/MM LV Fractional Shortening (2D) 29 % 27-45 LV EF (2D Teichholz) 55 % LV Diastolic Volume (4C MOD) 63 ml LV EF (4C MOD) 67 % LV Diastolic Length (4C) 6.7 cm LV Systolic Length (4C) 5.7 cm LV Stroke Volume (4C MOD) 42 ml Atria Name Value Normal LA Dimensions LA Volume (4C A-L) 49 ml LA Volume (BP A-L) 41 ml Report Signatures
[2025-04-19] MEDS: LEVOTHYROXINE SODIUM 125 MCG TABLET PO (06:18)
[2025-04-19 06:28] LABS: Alanine Aminotransferase 37 U/L (6-35); Albumin Level 4.1 g/dL (3.5-5.1); Alkaline Phosphatase 54 U/L (38-126); Anion Gap 11 mmol/L (4-12); Aspartate Amino Transferase 35 U/L (14-36); Bilirubin,Total 0.2 mg/dL (0.2-1.3); Blood Urea Nitrogen 11 mg/dL (7-17); Calcium 9.2 mg/dL (8.4-10.2); Carbon Dioxide 20 mmol/L (22-30); Chloride 106 mmol/L (98-107); Estimated CRCL calculation 108 ml/min; Estimated Glomerular Filt Rate > 60; Glucose 125 mg/dL (65-110); Potassium 4.1 mmol/L (3.4-5.0); Sodium 137 mmol/L (137-145); Total Protein 7.2 g/dL (6.3-8.2)
--- NOTE | 2025-04-19 13:37 | P.DS_ITS ---
DS: Admitting Diagnosis Discharge Date 04/19/25 Admitting Diagnosis Shortness of breath DS: Discharge Diagnosis Discharge Diagnosis (1) Bronchospasm: Code(s): J98.01 - Acute bronchospasm Status: Acute DS: Summary Hospital Course Hospital Course: Irlanda Grigsby is a 34 year old female with with past medical history av hypothyroidism and iodine and iodide contrast allergy who was recently sick from [place] (acute bronchitis) and treated with steroid and antibiotics -amoxicillin who is here today for worsening of shortness of breath and hypoxia. She also complains with cough, and chest pressure. She denies fever or chills. 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 Her symptoms are gradually getting worse over a month and half. Patient was place on IV Steroid, and bronchodilators, th morning patient is on room air and noted her symptoms has marledly improved adn resolvign. She firmly stated that her symptoms were triggered by chemicals she workes with at home. Patient discharged to completed PO steroid already prescribed and PRN Combivent. I counseled to avoid exposure to the culprit chemicals even if that means changing her job. Patient will follow up with PCP In 3-5 days Time Spent with Patient Time attestation: Total time spent providing and/or coordinating discharge services: DS: Data Data Completed and Pending Labs on day of discharge: Labs from last 24 hours 04/19/25 05:15 Sodium 137 Potassium 4.1 Chloride 106 Carbon Dioxide 20 L Anion Gap 11 BUN 11 Creatinine 0.55 L Estim Creat Clear Calc 108 Estimated GFR > 60 Glucose 125 H Calcium 9.2 Total Bilirubin 0.2 AST 35 ALT 37 H Alkaline Phosphatase 54 Total Protein 7.2 Albumin 4.1 Discharge Plan Discharge Attending physician on discharge: Darin Rowell Consulting providers: Darin Rowell Discharging Clinician: Darin Rowell Anticipated Discharge Date/Time: 04/19/25 13:34 Patient Disposition: Home Activity: as tolerated Diet: as tolerated Patient Instructions: Antibiotic Form Patient Language: Albanian Stand Alone Forms: General Discharge Information Follow-up/Referrals: Jacob,AURELIANO Nava [Primary Care Provider, Unknown] Referral Note: F/u with PCP in 3-5 days Discharge Medications: New Combivent Respimat 20-100 mcg/actuation mist 1 puff inhalation QID PRN (Reason: shortness of breath or wheezing) Qty: 4 0RF Rx Instructions: space evenly during waking hours Continued benzonatate 200 mg capsule 200 mg PO TID PRN (Reason: cough) Qty: 20 0RF prednisone 20 mg tablet 40 mg PO DAILY 5 Days Qty: 10 0RF albuterol sulfate 90 mcg/actuation HFA aerosol inhaler 2 puff inhalation Q4-6H PRN (Reason: shortness of breath or wheezing) Qty: 8.5 0RF levothyroxine [Synthroid] 125 mcg tablet 125 mcg PO DAILY amoxicillin 875 mg tablet 875 mg PO Q12H Patient Comments: began taking prescription 04/15/25. Rx Instructions: take Q12HR for 10 days Date of admission: 04/18/25 07:08 Primary Care Provider: JacobBrandy Admitting Provider: Ernestina Fair Attending physician on admission: Ernestina Fair Condition: Stable
== END 2025-04-19 15:13 | disposition home or self-care (01) ==
LOC: ANHED 07:12 → ANH3MEDSUR 04-19 09:20
PROVIDERS: Admitting Provider Student in an Organized Health Care Education/Training Program; Emergency Provider Emergency Medicine; PCP Physician Assistant; Visit Provider Internal Medicine
DX: J98.01 Acute bronchospasm (principal); J96.01 Acute respiratory failure with hypoxia; E07.9 Disorder of thyroid, unspecified; E03.9 Hypothyroidism, unspecified; E66.9 Obesity, unspecified; Z68.32 Body mass index [BMI] 32.0-32.9, adult; Z20.822 Contact with and (suspected) exposure to COVID-19
CPT/HCPCS: 36415; 71045; 78582; 80053; 83880; 84484; 85025; 85380; 87637; 87651; 93005; 93306; 94640; 96365; 96374; 96375; 96376; 99285; A9270; A9540; A9558; G0378; J0456; J0696; J2919; J7050